=== PATIENT | female | born 1950 | race Caucasian/White ===

== ENCOUNTER 2018-01-14 13:59 | Observation (INO) | payer MEDICARE, OTHER ==
[2018-01-14] MEDS ORDERED: SODIUM CHLORIDE 0.9% 500 ML IV ONE (14:21)
--- NOTE | 2018-01-14 14:45 | ED ---
General Adult HPI - General Chief complaint: Altered Mental Status Stated complaint: Confusion Time Seen by Provider: 01/14/18 14:00 Source: patient, family, RN notes reviewed Mode of arrival: ambulatory Limitations: no limitations - History of Present Illness Initial comments: This is a 67-year-old female presents emergency Department with her because she has been amnestic about this morning's events. And amnestic about the date or year and time. Patient's states she was normal about 1:00 she came outside ask him a question and then later he doctor and the patient did not even remember coming to see him. Patient admits she doesn't seem to be another member happened earlier today. Patient denies any headache patient denies numbness weakness. Patient denies any visual disturbance. states she was not having any patient returns. states she ambulated normally she appeared to have normal strength of all 4 extremities. Patient herself denied any weakness in extremities. Patient denied any chest pain palpitations difficulty breathing or shortness of breath. Patient denied any abdominal pain. Patient denied any palpitations. Patient denied any recent fever chills or cough. Patient denies any dysuria hematuria urinary frequency. - Related Data Home Medications Medication Instructions Recorded Confirmed Lisinopril-Hctz 10-12.5 mg 1 tab PO DAILY 01/14/18 01/14/18 [Zestoretic 10-12.5] Allergies Allergy/AdvReac Type Severity Reaction Status Date / Time Sulfa (Sulfonamide Allergy Rash/Hives Verified 01/14/18 14:26 Antibiotics) Review of Systems ROS Statement: Those systems with pertinent positive or pertinent negative responses have been documented in the HPI. ROS Other: All systems not noted in ROS Statement are negative. Past Medical History Past Medical History: No Reported History History of Any Multi-Drug Resistant Organisms: None Reported Past Surgical History: Tubal Ligation Past Psychological History: No Psychological Hx Reported Smoking Status: Never smoker Past Alcohol Use History: None Reported Past Drug Use History: None Reported General Exam - General Exam Comments Initial Comments: GENERAL: Patient is well-developed and well-nourished. Patient is nontoxic and well- hydrated and is in mild distress. ENT: Neck is soft and supple. No significant lymphadenopathy is noted. Oropharynx is clear. Moist mucous membranes. Neck has full range of motion without eliciting any pain. EYES: The sclera were anicteric and conjunctiva were pink and moist. Extraocular movements were intact and pupils were equal round and reactive to light. Eyelids were unremarkable. PULMONARY: Unlabored respirations. Good breath sounds bilaterally. No audible rales rhonchi or wheezing was noted. CARDIOVASCULAR: There is a regular rate and rhythm without any murmurs gallops or rubs. ABDOMEN: Soft and nontender with normal bowel sounds. No palpable organomegaly was noted. There is no palpable pulsatile mass. SKIN: Skin is clear with no lesions or rashes and otherwise unremarkable. NEUROLOGIC: Patient is alert and oriented 2. Patient is unaware of the year or date or time. Cranial nerves II through XII are grossly intact. Motor and sensory are also intact. Normal speech, volume and content. Symmetrical smile. MUSCULOSKELETAL: Normal extremities with adequate strength and full range of motion. No lower extremity swelling or edema. No calf tenderness. LYMPHATICS: No significant lymphadenopathy is noted PSYCHIATRIC: Normal psychiatric evaluation. Normal interpersonal interactions appears functionally intact in deals appropriately with others. No signs of depression. No signs of anxiety. Limitations: no limitations Course Vital Signs 01/14/18 01/14/18 01/14/18 14:06 14:45 16:02 Temperature 98.4 F Pulse Rate 97 78 86 Respiratory 18 16 18 Rate Blood Pressure 139/80 149/65 128/60 O2 Sat by Pulse 99 99 100 Oximetry Medical Decision Making - Medical Decision Making EKG shows a normal sinus rhythm at 75 bpm AK interval is 162 QRS is 84 Q-T intervals 384 QTC is 428. Patient's EKG shows no ST segment elevation or depression or T wave abnormalities are noted - Lab Data Result diagrams: 01/14/18 14:20 01/14/18 14:20 Lab Results 01/14/18 01/14/18 01/14/18 Range/Units 14:20 14:20 14:20 WBC 8.3 (3.8-10.6) k/uL RBC 4.85 (3.80-5.40) m/uL Hgb 14.6 (11.4-16.0) gm/dL Hct 43.2 (34.0-46.0) % MCV 89.0 (80.0-100.0) fL MCH 30.1 (25.0-35.0) pg MCHC 33.9 (31.0-37.0) g/dL RDW 12.4 (11.5-15.5) % Plt Count 251 (150-450) k/uL Neutrophils % 77 % Lymphocytes % 18 % Monocytes % 3 % Eosinophils % 1 % Basophils % 0 % Neutrophils # 6.4 (1.3-7.7) k/uL Lymphocytes # 1.5 (1.0-4.8) k/uL Monocytes # 0.2 (0-1.0) k/uL Eosinophils # 0.1 (0-0.7) k/uL Basophils # 0.0 (0-0.2) k/uL PT (9.0-12.0) sec INR (<1.2) APTT (22.0-30.0) sec Sodium 143 (137-145) mmol/L Potassium 3.7 (3.5-5.1) mmol/L Chloride 99 (98-107) mmol/L Carbon Dioxide 30 (22-30) mmol/L Anion Gap 14 mmol/L BUN 19 H (7-17) mg/dL Creatinine 0.70 (0.52-1.04) mg/dL Est GFR (CKD-EPI)AfAm >90 (>60 ml/min/1.73 sqM) Est GFR (CKD-EPI)NonAf >90 (>60 ml/min/1.73 sqM) Glucose 129 H (74-99) mg/dL POC Glucose (mg/dL) (75-99) mg/dL POC Glu [facility] Coordinator ID Calcium 10.4 H (8.4-10.2) mg/dL Total Bilirubin 0.4 (0.2-1.3) mg/dL AST 30 (14-36) U/L ALT 32 (9-52) U/L Alkaline Phosphatase 115 (38-126) U/L Total Creatine Kinase 51 (30-135) U/L CK-MB (CK-2) <0.2 (0.0-2.4) ng/mL CK-MB (CK-2) Rel Index Troponin I <0.012 (0.000-0.034) ng/mL Total Protein 7.5 (6.3-8.2) g/dL Albumin 4.3 (3.5-5.0) g/dL Urine Color Urine Appearance (Clear) Urine pH (5.0-8.0) Ur Specific [place] (1.001-1.035) Urine Protein (Negative) Urine Glucose (UA) (Negative) Urine Ketones (Negative) Urine Blood (Negative) Urine Nitrite (Negative) Urine Bilirubin (Negative) Urine Urobilinogen (<2.0) mg/dL Ur Leukocyte Esterase (Negative) Urine RBC (0-5) /hpf Urine WBC (0-5) /hpf Ur Squamous Epith Cells (0-4) /hpf Hyaline Casts (0-2) /lpf Urine Mucus (None) /hpf Urine Opiates Screen (NotDetected) Ur Oxycodone Screen (NotDetected) Urine Methadone Screen (NotDetected) Ur Propoxyphene Screen (NotDetected) Ur Barbiturates Screen (NotDetected) U Tricyclic Antidepress (NotDetected) Ur Phencyclidine Scrn (NotDetected) Ur Amphetamines Screen (NotDetected) U Methamphetamines Scrn (NotDetected) U Benzodiazepines Scrn (NotDetected) Urine Cocaine Screen (NotDetected) U Marijuana (THC) Screen (NotDetected) 01/14/18 01/14/18 01/14/18 Range/Units 14:20 14:46 14:57 WBC (3.8-10.6) k/uL RBC (3.80-5.40) m/uL Hgb (11.4-16.0) gm/dL Hct (34.0-46.0) % MCV (80.0-100.0) fL MCH (25.0-35.0) pg MCHC (31.0-37.0) g/dL RDW (11.5-15.5) % Plt Count (150-450) k/uL Neutrophils % % Lymphocytes % % Monocytes % % Eosinophils % % Basophils % % Neutrophils # (1.3-7.7) k/uL Lymphocytes # (1.0-4.8) k/uL Monocytes # (0-1.0) k/uL Eosinophils # (0-0.7) k/uL Basophils # (0-0.2) k/uL PT 10.5 (9.0-12.0) sec INR 1.1 (<1.2) APTT 22.5 (22.0-30.0) sec Sodium (137-145) mmol/L Potassium (3.5-5.1) mmol/L Chloride (98-107) mmol/L Carbon Dioxide (22-30) mmol/L Anion Gap mmol/L BUN (7-17) mg/dL Creatinine (0.52-1.04) mg/dL Est GFR (CKD-EPI)AfAm (>60 ml/min/1.73 sqM) Est GFR (CKD-EPI)NonAf (>60 ml/min/1.73 sqM) Glucose (74-99) mg/dL POC Glucose (mg/dL) 124 H (75-99) mg/dL POC Glu [facility] Coordinator ID Beth Cedeno Calcium (8.4-10.2) mg/dL Total Bilirubin (0.2-1.3) mg/dL AST (14-36) U/L ALT (9-52) U/L Alkaline Phosphatase (38-126) U/L Total Creatine Kinase (30-135) U/L CK-MB (CK-2) (0.0-2.4) ng/mL CK-MB (CK-2) Rel Index Troponin I (0.000-0.034) ng/mL Total Protein (6.3-8.2) g/dL Albumin (3.5-5.0) g/dL Urine Color Yellow Urine Appearance Clear (Clear) Urine pH 5.0 (5.0-8.0) Ur Specific [place] 1.023 (1.001-1.035) Urine Protein Negative (Negative) Urine Glucose (UA) Negative (Negative) Urine Ketones Negative (Negative) Urine Blood Negative (Negative) Urine Nitrite Negative (Negative) Urine Bilirubin Negative (Negative) Urine Urobilinogen <2.0 (<2.0) mg/dL Ur Leukocyte Esterase Moderate H (Negative) Urine RBC 2 (0-5) /hpf Urine WBC 3 (0-5) /hpf Ur Squamous Epith Cells 2 (0-4) /hpf Hyaline Casts 1 (0-2) /lpf Urine Mucus Occasional H (None) /hpf Urine Opiates Screen Not Detected (NotDetected) Ur Oxycodone Screen Not Detected (NotDetected) Urine Methadone Screen Not Detected (NotDetected) Ur Propoxyphene Screen Not Detected (NotDetected) Ur Barbiturates Screen Not Detected (NotDetected) U Tricyclic Antidepress Not Detected (NotDetected) Ur Phencyclidine Scrn Not Detected (NotDetected) Ur Amphetamines Screen Not Detected (NotDetected) U Methamphetamines Scrn Not Detected (NotDetected) U Benzodiazepines Scrn Not Detected (NotDetected) Urine Cocaine Screen Not Detected (NotDetected) U Marijuana (THC) Screen Not Detected (NotDetected) Disposition Clinical Impression: CVA (cerebral vascular accident), Amnesia Disposition: ADMITTED IP TO THIS HOSP Referrals: None,Stated [Primary Care Provider] - 1-2 days Time of Disposition: 16:20
[2018-01-14 14:50] LABS: Basophils % (A) 0 %; Eosinophils # (A) 0.1 k/uL (0-0.7); Eosinophils % (A) 1 %; HCT 43.2 % (34.0-46.0); HGB 14.6 gm/dL (11.4-16.0); Lymphocytes # (A) 1.5 k/uL (1.0-4.8); Lymphocytes % (A) 18 %; MCH 30.1 pg (25.0-35.0); MCHC 33.9 g/dL (31.0-37.0); Mean Platelet Volume 7.2; Monocytes # (A) 0.2 k/uL (0-1.0); Monocytes % (A) 3 %; Neutrophils # (A) 6.4 k/uL (1.3-7.7); Neutrophils % (A) 77 %; Platelet Count 251 k/uL (150-450); RBC 4.85 m/uL (3.80-5.40); RDW 12.4 % (11.5-15.5); WBC 8.3 k/uL (3.8-10.6)
--- NOTE | 2018-01-14 14:53 | XR ---
EXAMINATION TYPE: XR chest 2V DATE OF EXAM: 01/14/2018 COMPARISON: NONE TECHNIQUE: PA and lateral views submitted. HISTORY: Altered mental status FINDINGS: The lungs are clear and there is no pneumothorax, pleural effusion, or focal pneumonia. Arthropathy of the shoulders. Degenerative change of the spine noted. Hyperinflation suggests COPD. Surgical cli ps in the abdomen noted. IMPRESSION: 1. No acute process.
[2018-01-14 14:54] LABS: ALT 32 U/L (9-52); AST 30 U/L (14-36); Albumin 4.3 g/dL (3.5-5.0); Alkaline Phosphatase 115 U/L (38-126); Anion Gap 14 mmol/L; Blood Urea Nitrogen 19 mg/dL (7-17); Calcium 10.4 mg/dL (8.4-10.2); Carbon Dioxide 30 mmol/L (22-30); Chloride 99 mmol/L (98-107); Glucose 129 mg/dL (74-99); INR 1.1 (<1.2); Partial Thromboplastin Time 22.5 sec (22.0-30.0); Potassium 3.7 mmol/L (3.5-5.1); Prothrombin Time 10.5 sec (9.0-12.0); Sodium 143 mmol/L (137-145); Total Bilirubin 0.4 mg/dL (0.2-1.3); Total Protein 7.5 g/dL (6.3-8.2)
[2018-01-14 15:07] LABS: Glucose,Whole Blood 124 mg/dL (75-99)
[2018-01-14 15:07] LABS: Appearance,Urine Clear (Clear); Bilirubin,Urine Negative (Negative); Blood,Urine Negative (Negative); Color,Urine Yellow; Glucose,Urine (UA) Negative (Negative); Hyaline Casts,Urine 1 /lpf (0-2); Ketones,Urine Negative (Negative); Leukocyte Esterase,Urine Moderate (Negative); Mucus,Urine Occasional /hpf; Nitrite,Urine Negative (Negative); Protein,Urine Negative (Negative); RBC,Urine 2 /hpf (0-5); Specific Gravity,Urine 1.023 (1.001-1.035); Squamous Epithelial Cell,Urine 2 /hpf (0-4); Urobilinogen,Urine <2.0 mg/dL (<2.0); WBC,Urine 3 /hpf (0-5)
[2018-01-14 15:14] LABS: Creatine Kinase 51 U/L (30-135)
[2018-01-14 15:15] LABS: Amphetamine Screen,Urine Not Detected (NotDetected); Barbiturate Screen,Urine Not Detected (NotDetected); Benzodiazepines Screen,Urine Not Detected (NotDetected); Cocaine Screen,Urine Not Detected (NotDetected); Methadone Screen, Urine Not Detected (NotDetected); Opiate Screen,Urine Not Detected (NotDetected); Oxycodone Screen, Urine Not Detected (NotDetected); Phencyclidine Screen,Urine Not Detected (NotDetected); Tricyclic Antidepressant,Urine Not Detected (NotDetected); Urn Cannabinoid Scrn Not Detected (NotDetected)
[2018-01-14 15:25] LABS: Creatine Kinase MB <0.2 ng/mL (0.0-2.4); Troponin I <0.012 ng/mL (0.000-0.034)
--- NOTE | 2018-01-14 15:48 | CT ---
EXAMINATION TYPE: CT brain wo con DATE OF EXAM: 01/14/2018 COMPARISON: NONE HISTORY: Confusion CT DLP: 792.6 mGycm Automated exposure control for dose reduction was used. FINDINGS: 0.8 x 0.5 cm mass along the anterior cerebral convexity on the right. Mild to moderate generalized degenerative change. Periventricular low attenuation is compatible with remote microvascular ischemia. Intracranial atherosclerotic changes are noted. No midline shift. Calvarium is intact and there are changes of hyperostosis frontalis interna. IMPRESSION: DEGENERATIVE AND NONSPECIFIC WHITE MATTER CHANGES MOST TYPICAL REMOTE MICROVASCULAR ISCHEMIA. IF THER E IS CONCERN FOR ACUTE ISCHEMIA CORRELATE WITH MRI. THERE IS A 0.8 X 0.5 CM EXTRA-AXIAL MASS ALONG THE ANTERIOR FRONTAL CEREBRAL CONVEXITY MOST COMPATIBL E WITH A MENINGIOMA.
[2018-01-14] MEDS ORDERED: ASPIRIN 325 MG TAB PO STA (16:22)
[2018-01-14] MEDS ORDERED: ACETAMINOPHEN TAB 500 MG TAB PO PRN (17:47)
[2018-01-14] MEDS: IBUPROFEN 600 MG TAB PO PRN (20:39)
--- NOTE | 2018-01-14 21:04 | US ---
EXAMINATION TYPE: US carotid duplex BILAT DATE OF EXAM: 01/14/2018 COMPARISON: NONE CLINICAL HISTORY: TIA. TIA EXAM MEASUREMENTS: RIGHT: Peak Systolic Velocity (PSV) cm/sec ----- Right CCA: 71.1 ----- Right ICA: 94.4 ----- Right ECA: 90.0 ICA/CCA ratio: 1.3 RIGHT: End Diastole cm/sec ----- Right CCA: 11.5 ----- Right ICA: 28.9 ----- Right ECA: 8.6 LEFT: Peak Systolic Velocity (PSV) cm/sec ----- Left CCA: 85.8 ----- Left ICA: 83.2 ----- Left ECA: 112.2 ICA/CCA ratio: 1.0 LEFT: End Diastole cm/sec ----- Left CCA: 18.4 ----- Left ICA: 17.1 ----- Left ECA: 10.1 VERTEBRALS (direction of flow): Right Vertebral: Antegrade Left Vertebral: Antegrade Rhythm: Normal IMPRESSION: NO SIGNIFICANT STENOSIS SEEN
--- NOTE | 2018-01-14 21:52 | CONS ---
CONSULTATION DATE OF CONSULTATION: 01/14/2018 CHIEF COMPLAINT: Transient amnestic spell. HISTORY OF PRESENT ILLNESS: Mrs. Estrada is a pleasant 67-year-old female who is being evaluated by the neurology service per the request of Dr. Fuller for a transient amnestic episode. The patient was brought into [facility] Emergency Room after her noticed that she was not remembering the events of this morning. The patient states that she remembers waking up this morning but then does not recall much until she remembers things in the emergency room. She states that there are approximately 4 hours of this morning that she does not recall. She denies any previous episodes similar to this. She did not have any falls or head injury. She does complain of a headache. A CT scan of the brain was done which showed small-vessel ischemic changes. There was also evidence of an 8 x 5 mm extra-axial frontal region mass consistent with a meningioma. Her CBC, comprehensive metabolic profile, cardiac enzymes, urine drug screen and INR were all reviewed and were normal. Her urinalysis showed 3 WBCs with moderate leukocyte esterase. At the time of my evaluation, the patient is sitting up in her bed and appears to be in no acute distress. She denies any recurrence of any neurological symptoms and denies any lateralizing numbness or weakness at this time. She still complains of a headache which she rates at 7/10 in intensity, and it is mostly in the frontal region bilaterally. She has been given Tylenol, but this did not resolve the headache. She states that her headaches usually respond to ibuprofen. PAST MEDICAL HISTORY: Hypertension. PAST SURGICAL HISTORY: Tubal ligation. SOCIAL HISTORY: She denies any tobacco, alcohol or drug use. FAMILY HISTORY: Noncontributory. HOME MEDICATIONS: Reviewed in the chart. ALLERGIES: SULFA DRUGS. REVIEW OF SYSTEMS: CONSTITUTIONAL: Negative. EYES: Negative. ENT: Negative. CARDIOVASCULAR: Negative. RESPIRATORY: Negative. NEUROLOGICAL: As mentioned above. GASTROINTESTINAL: Negative. GENITOURINARY: Negative. DERMATOLOGICAL: Negative. PSYCHIATRIC: Negative. MUSCULOSKELETAL: Negative. ENDOCRINE: Negative. PHYSICAL EXAMINATION: Vital signs show a temperature of 97.3, pulse 76, respirations 16, blood pressure 140/86. GENERAL APPEARANCE: The patient is a well-developed female who appears to be in no acute distress. HEENT: Normocephalic, atraumatic. No facial asymmetry is seen. Extraocular muscles are intact. NECK: Supple with no masses felt. CARDIOVASCULAR: Regular rate and rhythm. ABDOMEN: Nontender, nondistended. Extremities showed no edema or clubbing. NEUROLOGICAL EXAMINATION: The patient is alert, aware and oriented x3. Speech and language are normal. Strength is full in all 4 extremities. Sensory exam was normal to light touch in all 4 extremities. No facial asymmetry is seen on cranial nerve testing. IMPRESSION: 1. Transient ischemic attack. 2. Transient amnestic episode. 3. Headache. 4. Meningioma. RECOMMENDATION: The patient does appear to have suffered a transient ischemic attack with a transient amnestic episode. Her symptoms have completely resolved at this time. I will keep her on aspirin 325 mg daily. She was not on any anti-platelet therapy at home. I will order a fasting lipid panel, EEG, carotid Doppler and serum homocystine level. I reviewed with her the results of her CT scan of the brain as mentioned above. As for her headache, I will try her on Motrin 600 mg p.r.n. Continue the rest of your current workup and management. I will continue to follow with you. Further recommendations to follow. Thank you for allowing me to participate in the care of your patient. If you have any questions, please feel free to contact me. MMODL / IJN: [id number] /
[2018-01-15 06:31] LABS: Cholesterol 170 mg/dL (<200); HDL Cholesterol 63 mg/dL (40-60); LDL Cholesterol,Calculated 95 mg/dL (0-99); Triglycerides 61 mg/dL (<150)
[2018-01-15] MEDS: ASPIRIN 325 MG TAB PO SCH (07:58)
[2018-01-15] MEDS: LISINOPRIL-HCTZ 10-12.5 MG 1 EACH TAB PO SCH (07:58)
--- NOTE | 2018-01-15 11:56 | P.HPIM ---
History of Present Illness H&P Date: 01/15/18 Chief Complaint: Short period of memory loss This is a 67-year-old female with past medical history significant for essential hypertension who presented to the emergency room with a transient episode of amnesia. Patient was brought in by her with concern that she did not remember significant events it happened yesterday morning. Her informed me that patient did not recall meeting him at the bar or even talking to him on the phone. Patient herself said that she does not even remember when she was brought into the hospital. She feels back to her normal self right now. There was no focal neurological deficits. Patient denies any headache or vision change. No numbness or weakness anywhere in her body. Patient was evaluated in the emergency room and a computed tomography scan of the brain showed evidence of a questionable hemangioma. Patient said that she is well aware of this lesion. Patient reported that she had an MRI of the brain done couple of month ago at [facility]. She was previously evaluated by neurosurgery at [facility] as well. She is currently awake and alert. She does not have any complaints. She was seen and evaluated by neurology. Review of Systems Review of system: 14 points review of systems were obtained and were negative except to what were mentioned in the HPI. Past Medical History Past Medical History: Hypertension, Rheumatoid Arthritis (RA) Additional Past Medical History / Comment(s): cervical ddd-"has had epidural inj and pt stated ever since her rt hand to wrist feels icy cold",sinus problems. past migaines, History of Any Multi-Drug Resistant Organisms: None Reported Past Surgical History: Cholecystectomy, Hysterectomy, Tubal Ligation Additional Past Surgical History / Comment(s): colonoscopy, cervical epidural inj Past Anesthesia/Blood Transfusion Reactions: Postoperative Nausea & Vomiting ( PONV) Smoking Status: Never smoker - Past Family History Mother Family Medical History: Liver Disease Additional Family Medical History / Comment(s): non alcohoilic liver disease Father Family Medical History: Hypertension, Myocardial Infarction (DE) Additional Family Medical History / Comment(s): mi at age 48. smoker Medications and Allergies Home Medications Medication Instructions Recorded Confirmed Type Lisinopril-Hctz 10-12.5 mg 1 tab PO DAILY 01/14/18 01/14/18 History [Zestoretic 10-12.5] Allergies Allergy/AdvReac Type Severity Reaction Status Date / Time Sulfa (Sulfonamide Allergy Rash/Hives Verified 01/14/18 14:26 Antibiotics) Physical Exam Vitals: Vital Signs Temp Pulse Pulse Resp BP BP Pulse Ox 01/15/18 11:29 73 01/15/18 10:58 97.0 F L 73 16 123/58 97 01/15/18 08:00 73 01/15/18 07:47 97.5 F L 73 16 108/63 97 01/15/18 04:10 85 17 01/15/18 04:00 98.2 F 80 17 116/57 97 01/15/18 00:15 98.1 F 93 17 104/57 97 01/14/18 20:10 98.1 F 88 17 118/57 98 01/14/18 17:15 76 16 01/14/18 17:13 97.3 F L 76 16 140/86 98 01/14/18 16:43 97.6 F 79 16 124/97 99 01/14/18 16:02 86 18 128/60 100 01/14/18 14:45 78 16 149/65 99 01/14/18 14:06 98.4 F 97 18 139/80 99 Intake and Output 01/14/18 01/15/18 01/15/18 22:59 06:59 14:59 Intake Total 240 490 Balance 240 490 Intake: IV 10 0.9 10 Oral 240 480 Other: Voiding Method Toilet Toilet # Voids 1 2 1 Weight 80.6 kg General: The patient is awake and alert, in no distress Eye: there is normal conjunctiva bilaterally. Neck: The neck is supple, there is no JVD. Cardiovascular: Normal S1-S2, no S3-S4, no murmurs. Respiratory: Lungs clear to auscultation bilaterally Gastrointestinal: Abdomen is soft, nontender Musculoskeletal: There is no pedal edema. Neurological:. Speech is normal. Skin: Skin is warm and dry Results CBC & Chem 7: 01/14/18 14:20 01/14/18 14:20 Labs: Abnormal Lab Results - Last 24 Hours (Table) 01/14/18 01/14/18 01/14/18 Range/Units 14:20 14:46 14:57 BUN 19 H (7-17) mg/dL Glucose 129 H (74-99) mg/dL POC Glucose (mg/dL) 124 H (75-99) mg/dL Calcium 10.4 H (8.4-10.2) mg/dL HDL Cholesterol (40-60) mg/dL Ur Leukocyte Esterase Moderate H (Negative) Urine Mucus Occasional H (None) /hpf 01/15/18 Range/Units 05:54 BUN (7-17) mg/dL Glucose (74-99) mg/dL POC Glucose (mg/dL) (75-99) mg/dL Calcium (8.4-10.2) mg/dL HDL Cholesterol 63 H (40-60) mg/dL Ur Leukocyte Esterase (Negative) Urine Mucus (None) /hpf Thrombosis Risk Factor Assmnt - Choose All That Apply Each Risk Factor Represents 2 Points: Age 61-74 years Thrombosis Risk Factor Assessment Total Risk Factor Score: 2 Thrombosis Risk Factor Assessment Level: Low Risk Assessment and Plan Assessment: 1. Episode of transient amnesia 2. Suspected transient ischemic attack 3. Brain hemangioma 4. Diet-controlled hyperlipidemia Isn't was seen and evaluated by neurology. She was started on aspirin daily. Her symptoms may be attributed to transient ischemic attack. Carotid Doppler showed no hematoma dynamically significant stenosis. I would obtain echocardiogram of the heart for further evaluation. We will try to obtain a copy of the MRI done attributed to stick to a month ago. Continue telemetry monitoring. Awaiting neurology clearance for discharge.
--- NOTE | 2018-01-15 13:38 | EEG ---
ELECTROENCEPHALOGRAM REPORT DATE OF SERVICE: 01/15/2018 REASON FOR TESTING: Transient ischemic attack, transient amnestic spell. DESCRIPTION OF THE PROCEDURE: This EEG was performed using a 21 channel digital electroencephalograph, following international 10-20 system. DESCRIPTION OF THE RECORDING: From the beginning of the tracing, and with patient's eyes closed, the background rhythm was mostly consisting of 8 to 9 Hz alpha frequency in the posterior occipital leads. No obvious asymmetry is seen. Photic stimulation was performed with a minimal driving response seen. No pathological waves were elicited. Hyperventilation was not performed. Frequent movement and muscle artifacts are seen. No obvious epileptiform discharges were seen. The patient remains awake throughout the tracing. Her EKG lead showed a regular rate and rhythm. INTERPRETATION: This awake EEG can be considered within normal limits. There was no asymmetry seen. No epileptiform discharges were noticed. The absence of epileptiform discharges does not rule out the diagnosis of epilepsy; therefore clinical correlation is recommended. MMMERNA / SHAWN: [id number] /
[2018-01-15] MEDS: IBUPROFEN 600 MG TAB PO PRN (19:49)
[2018-01-15] MEDS: HEPARIN SODIUM,PORCINE 5,000 UNIT/ML 1 ML VIAL SQ SCH (20:05)
[2018-01-16 06:03] LABS: Basophils % (A) 1 %; Eosinophils # (A) 0.2 k/uL (0-0.7); Eosinophils % (A) 3 %; HCT 37.7 % (34.0-46.0); HGB 12.9 gm/dL (11.4-16.0); Lymphocytes # (A) 2.4 k/uL (1.0-4.8); Lymphocytes % (A) 41 %; MCH 30.5 pg (25.0-35.0); MCHC 34.3 g/dL (31.0-37.0); MCV 88.9 fL (80.0-100.0); Mean Platelet Volume 7.3; Monocytes # (A) 0.3 k/uL (0-1.0); Monocytes % (A) 6 %; Neutrophils # (A) 2.8 k/uL (1.3-7.7); Neutrophils % (A) 47 %; Platelet Count 202 k/uL (150-450); RBC 4.24 m/uL (3.80-5.40); RDW 12.6 % (11.5-15.5); WBC 5.9 k/uL (3.8-10.6)
[2018-01-16 06:13] LABS: Albumin 3.6 g/dL (3.5-5.0); Potassium 3.8 mmol/L (3.5-5.1); Total Protein 6.1 g/dL (6.3-8.2)
[2018-01-16 06:14] LABS: Calcium 9.7 mg/dL (8.4-10.2); Total Bilirubin 0.6 mg/dL (0.2-1.3)
[2018-01-16 08:27] VITALS: RESP 16; TEMP 97.1
[2018-01-16] MEDS: HEPARIN SODIUM,PORCINE 5,000 UNIT/ML 1 ML VIAL SQ SCH (08:28)
[2018-01-16] MEDS: ASPIRIN 325 MG TAB PO SCH (08:29)
[2018-01-16] MEDS: LISINOPRIL-HCTZ 10-12.5 MG 1 EACH TAB PO SCH (08:29)
--- NOTE | 2018-01-16 09:35 | ECHOF ---
Referral Reason:TIA? MEASUREMENTS -------- HEIGHT: 160.0 cm WEIGHT: 80.3 kg BP: 123/58 RVIDd: 2.2 cm (< 3.3) IVSd: 1.0 cm (0.6 - 1.1) LVIDd: 3.3 cm (3.9 - 5.3) LVPWd: 1.2 cm (0.6 - 1.1) IVSs: 1.1 cm LVIDs: 2.9 cm LVPWs: 1.1 cm LAESV Index (A-L): 24.27 ml/m Ao Diam: 2.8 cm (2.0 - 3.7) AV Cusp: 1.6 cm (1.5 - 2.6) LA Diam: 2.9 cm (2.7 - 3.8) MV EXCURSION: 14.577 mm (> 18.000) MV EF SLOPE: 62 mm/s (70 - 150) EPSS: 0.3 cm MV E Glenn: 0.86 m/s MV DecT: 174 ms MV A Glenn: 1.00 m/s MV E/A Ratio: 0.86 RAP: 5.00 mmHg RVSP: 34.03 mmHg FINDINGS -------- Sinus rhythm. This was a technically adequate study. LV size, wall thickness and systolic function are normal, with an EF greater than 55%. The right ventricle is normal in size. The left atrial size is normal. Normal LA size by volume 22+/-6 ml/m2. The right atrial size is normal. The aortic valve is trileaflet, and appears structurally normal. No aortic stenosis or regurgitation. Mild mitral regurgitation is present. Mild tricuspid regurgitation present. There is no evidence of pulmonary hypertension. The right v entricular systolic pressure, as measured by Doppler, is 34.03mmHg. There is no pulmonic regurgitation present. The aortic root size is normal. There is no pericardial effusion. CONCLUSIONS -------- 1. Sinus rhythm. 2. LV size, wall thickness and systolic function are normal, with an EF greater than 55%. 3. The left atrial size is normal. 4. Normal LA size by volume 22+/-6 ml/m2. 5. The right atrial size is normal. 6. The aortic valve is trileaflet, and appears structurally normal. No aortic stenosis or regurgitati on. 7. Mild mitral regurgitation is present. 8. Mild tricuspid regurgitation present. 9. There is no evidence of pulmonary hypertension. 10. The right ventricular systolic pressure, as measured by Doppler, is 34.03mmHg. 11. There is no pulmonic regurgitation present. 12. The aortic root size is normal. 13. There is no pericardial effusion. EXTRACORPOREAL CIRCULATION SPECIALIST: Galina Evans RDCS
[2018-01-16 11:14] VITALS: BP 105/57; PULSE 75
--- NOTE | 2018-01-16 14:14 | P.DS ---
Providers Date of admission: 01/14/18 16:23 Expected date of discharge: 01/16/18 Attending physician: Pan Fuller Consults: 01/14/18 16:23 Consult Physician Routine Consulting Provider: Raj Aponte Consult Reason/Comments: CVA, amnesia Do you want consulting provider notified?: Yes Primary care physician: Stated None Hospital Course: This is a 67-year-old female with past medical history noted below presented to the hospital with an episode of transient amnesia that resolved upon presentation to the emergency room. Patient underwent a computed tomography scan of the brain in the emergency room showing no acute stroke or CVA. Patient was noted to have some changes on CT suspected for remote microvascular ischemia. Patient also was noted to have a 0.8 x 0.5 Ex-Lax he had mass along the anterior frontal cerebral convexity compatible with a hemangioma. Patient said that this is well known to her and she was previously seen at [facility] neurosurgery in the past. She denies any headache otherwise. She did not have any other neurological symptoms. Patient was seen and evaluated by neurology. She was started on daily aspirin. Echocardiogram showed preserved ejection fraction with no intracardiac source for stroke. She also underwent an EEG that was normal for her age. She will be discharged home in a stable condition. She will follow-up with her primary care physician and neurologist at [facility]. 1. Episode of transient amnesia 2. Suspected transient ischemic attack 3. Brain hemangioma 4. Diet-controlled hyperlipidemia Patient Condition at Discharge: Fair Plan - Discharge Summary Discharge Rx Participant: No New Discharge Prescriptions: New Aspirin EC [Ecotrin Low Dose] 81 mg PO DAILY #30 tablet. Continue Lisinopril-Hctz 10-12.5 mg [Zestoretic 10-12.5] 1 tab PO DAILY Discharge Medication List Lisinopril-Hctz 10-12.5 mg [Zestoretic 10-12.5] 1 tab PO DAILY 01/14/18 [History ] Aspirin EC [Ecotrin Low Dose] 81 mg PO DAILY #30 tablet. 01/16/18 [Rx] Follow up Appointment(s)/Referral(s): Raj Aponte MD [STAFF PHYSICIAN] - 2 Weeks (Spoke to cross country coach. Office will call with appointment time.) Consuelo Roldan MD [REFERRING] - 01/20/18 10:30 am (Friday) Patient Instructions/Handouts: Transient Ischemic Attack (DC) Discharge Disposition: HOME SELF-CARE
== END 2018-01-16 15:43 | disposition home or self-care (01) ==
LOC: EC 13:59 → INTOOBSV 16:23 → 6SEL 16:23
PROVIDERS: ADMIT Internal Medicine; ATTEND Internal Medicine
DX: G45.4 Transient global amnesia (principal); D18.02 Hemangioma of intracranial structures; D32.0 Benign neoplasm of cerebral meninges; E78.5 Hyperlipidemia, unspecified; I10 Essential (primary) hypertension; M06.9 Rheumatoid arthritis, unspecified; M50.30 Other cervical disc degeneration, unspecified cervical region; Z88.2 Allergy status to sulfonamides; Z79.899 Other long term (current) drug therapy; Z90.49 Acquired absence of other specified parts of digestive tract; Z82.49 Family history of ischemic heart disease and other diseases of the circulatory system; Z83.79 Family history of other diseases of the digestive system
CPT/HCPCS: 99285 ×2; 96360 ×2; 36415; 95816; 93005; 93306; 97161; 97165; 92523; 80061; 80053 ×2; 82550; 82553; 84484; 85025 ×2; 85610; 85730; 81001; 83090; 80306; 71046; 93880; 70450; G0378 ×4

== ENCOUNTER → 2018-02-10 | Outpatient (CLI) | payer MEDICARE, OTHER ==
--- NOTE | 2018-02-10 10:33 | MR ---
EXAMINATION TYPE: MR brain wo/w con DATE OF EXAM: 02/10/2018 COMPARISON: CT brain 01/14/2018 HISTORY: Benign neoplasm of cerebral meninges, Short term memory loss TECHNIQUE: Multiplanar, multisequence images of the brain and brainstem is performed without and with IV contras t, utilizing 7.5 mL intravenous Gadavist . FINDINGS: Diffusion weighted images demonstrate no evidence of a recent infarct or other diffusion ab normality. There is no extra-axial fluid collection. Scattered hyperintensities are present within the inversion recovery and T2 weighted data sets in the subcortical, deep, periventricular white duy er. Approximately 30 or more lesions are present. Question juxtacortical lesion in the medial right t emporal lobe, axial image 13. The abnormality identified on CT superficial to the right frontal lobe, is dural based, shows increased intensity on FLAIR sequence, isointense on T1 and T2-weighted sequen blas. There is intense enhancement following contrast administration, the lesion measures approximatel y 1 cm in AP dimension by 7 mm in transverse dimension by 6 mm, there is possibly some minimal local mass effect The ventricular system and cisternal spaces are normal in size and appearance. The brain volume is age appropriate. Midline structures demonstrate normal morphology. The craniocervical junction appears within normal limits. The dural venous sinuses appear patent. The visualized sinuses are clear and the globes are intact. Minimal inflammatory change present in the mastoid air cells on the left. There are normal v ascular flow voids. IMPRESSION: Findings compatible with meningioma as noted on CT of 01/14/2018. Nonspecific white matter demyelination could be related to chronic small vessel ischemic change.
== END | disposition home or self-care (01) ==
LOC: RADMRIMAIN 08:28
PROVIDERS: ATTEND Family Medicine
DX: G37.8 Other specified demyelinating diseases of central nervous system (principal); D32.0 Benign neoplasm of cerebral meninges
CPT/HCPCS: 70553; A9581

== ENCOUNTER 2019-01-27 18:27 | Emergency (ER) | payer MEDICARE, OTHER ==
[2019-01-27] MEDS ORDERED: SODIUM CHLORIDE 0.9% 500 ML 500 ML IV ONE (18:50)
--- NOTE | 2019-01-27 19:12 | ED ---
General Adult HPI - General Chief complaint: Altered Mental Status Stated complaint: mental confustion Time Seen by Provider: 01/27/19 18:43 Source: patient, family, RN notes reviewed, old records reviewed Mode of arrival: ambulatory Limitations: no limitations - History of Present Illness Initial comments: 68-year-old female presents with confusion and repetitive questioning which began this afternoon approximately 4 hours prior to arrival. Patient had similar episode approximately one year ago with confusion and repetitive questioning. She was evaluated at that time and admitted to the hospital. She states that there was no formal diagnosis made in that the symptoms completely resolved. She has history of hypertension and denies any other chronic medical problems. She has no headache, no vision changes, no focal numbness or weakness. No abdominal pain. No chest pain or dyspnea. No cough no fever. No dysuria or hematuria. - Related Data Home Medications Medication Instructions Recorded Confirmed Lisinopril-Hctz 10-12.5 mg 1 tab PO DAILY 01/14/18 01/27/19 [Zestoretic 10-12.5] Aspirin 650 mg PO ONCE PRN 01/27/19 01/27/19 Allergies Allergy/AdvReac Type Severity Reaction Status Date / Time Sulfa (Sulfonamide Allergy Rash/Hives Verified 01/27/19 19:01 Antibiotics) Review of Systems ROS Statement: Those systems with pertinent positive or pertinent negative responses have been documented in the HPI. ROS Other: All systems not noted in ROS Statement are negative. Past Medical History Past Medical History: Hypertension, Rheumatoid Arthritis (RA) Additional Past Medical History / Comment(s): cervical ddd-"has had epidural inj and pt stated ever since her rt hand to wrist feels icy cold",sinus problems. past migaines, History of Any Multi-Drug Resistant Organisms: None Reported Past Surgical History: Cholecystectomy, Hysterectomy, Tubal Ligation Additional Past Surgical History / Comment(s): colonoscopy, cervical epidural inj Past Anesthesia/Blood Transfusion Reactions: Postoperative Nausea & Vomiting ( PONV) Past Psychological History: No Psychological Hx Reported Smoking Status: Never smoker Past Alcohol Use History: None Reported Past Drug Use History: None Reported - Past Family History Mother Family Medical History: Liver Disease Additional Family Medical History / Comment(s): non alcohoilic liver disease Father Family Medical History: Hypertension, Myocardial Infarction ([place]) Additional Family Medical History / Comment(s): mi at age 48. smoker General Exam Limitations: no limitations General appearance: alert, in no apparent distress Head exam: Present: atraumatic, normocephalic Eye exam: Present: normal appearance, PERRL ENT exam: Present: normal exam Neck exam: Present: normal inspection. Absent: tenderness, meningismus Respiratory exam: Present: normal lung sounds bilaterally. Absent: respiratory distress, wheezes Cardiovascular Exam: Present: regular rate, normal rhythm GI/Abdominal exam: Present: soft. Absent: distended, tenderness, guarding Extremities exam: Present: normal inspection, normal capillary refill. Absent: pedal edema Neurological exam: Present: alert, oriented X3, CN II-XII intact. Absent: motor sensory deficit Expanded Neurological exam: Present: protecting the airway. Absent: receptive aphasia, expressive aphasia Patient oriented to: Present: person, place, time Speech: Present: fluid speech. Absent: receptive aphasia, expressive aphasia, total aphasia Cranial nerves: EOM's Intact: Normal, Gag Reflex: Normal, Tongue Deviation: Normal, Nystagmus: Normal, Facial Palsy with Forehead Movement: Normal Cerebellar function: Finger to Nose: Normal Upper motor neuron: Hiro Neglect: Normal, Pronator Drift: Normal Motor strength exam: RUE: 5, LUE: 5, RLE: 5, LLE: 5 Eye Response: (4) open spontaneously Motor Response: (6) obeys commands Verbal Response: (5) oriented Psychiatric exam: Present: normal affect, normal mood Skin exam: Present: warm, dry, intact. Absent: cyanosis, diaphoretic Course Vital Signs 01/27/19 01/27/19 18:30 19:04 Temperature 97.6 F Pulse Rate 106 H 102 H Respiratory 20 16 Rate Blood Pressure 144/74 140/70 O2 Sat by Pulse 99 99 Oximetry EKG Findings - EKG Comments: EKG Findings:: EKG: Normal sinus rhythm, rate of 85, NE interval 172, QRS duration 76, QTC 437, no ST segment changes. Medical Decision Making - Medical Decision Making 68 -year-old female presents as some confusion and questioning. Patient is well-appearing, shows a nonfocal neurologic exam. NIH is 0. She is alert and oriented 4. She is accompanied by her . Workup in the emergency department reveals head CT which is negative for intracranial hemorrhage or mass effect. Chest x-ray negative for focal pneumonia. Normal CBC, normal CMP. Urinalysis shows 3 white cells, no significant infection. Urinalysis is posi tive for benzodiazepines and patient does take Xanax to help her sleep at night. She did not take this in the daytime. She is informed of our results and is very eager for discharge. Given that the patient had similar symptoms one year ago which resolved without treatment, I am comfortable with close outpatient follow-up. She will return with any worsening or changing symptoms. She is alert and oriented and able to make decisions, her is agreeable. - Lab Data Result diagrams: 01/27/19 18:45 01/27/19 18:45 Lab Results 01/27/19 01/27/19 01/27/19 Range/Units 18:45 18:45 18:45 WBC 8.8 (3.8-10.6) k/uL RBC 4.39 (3.80-5.40) m/uL Hgb 14.6 (11.4-16.0) gm/dL Hct 38.8 (34.0-46.0) % MCV 88.4 (80.0-100.0) fL MCH 33.4 (25.0-35.0) pg MCHC 37.8 H (31.0-37.0) g/dL RDW 13.7 (11.5-15.5) % Plt Count 265 (150-450) k/uL Neutrophils % 76 % Lymphocytes % 17 % Monocytes % 4 % Eosinophils % 1 % Basophils % 0 % Neutrophils # 6.7 (1.3-7.7) k/uL Lymphocytes # 1.5 (1.0-4.8) k/uL Monocytes # 0.4 (0-1.0) k/uL Eosinophils # 0.1 (0-0.7) k/uL Basophils # 0.0 (0-0.2) k/uL PT (9.0-12.0) sec INR (<1.2) APTT (22.0-30.0) sec Sodium 139 (137-145) mmol/L Potassium 3.7 (3.5-5.1) mmol/L Chloride 100 (98-107) mmol/L Carbon Dioxide 29 (22-30) mmol/L Anion Gap 10 mmol/L BUN 16 (7-17) mg/dL Creatinine 0.78 (0.52-1.04) mg/dL Est GFR (CKD-EPI)AfAm >90 (>60 ml/min/1.73 sqM) Est GFR (CKD-EPI)NonAf 79 (>60 ml/min/1.73 sqM) Glucose 118 H (74-99) mg/dL POC Glucose (mg/dL) (75-99) mg/dL POC Glu Web Programmer ID Calcium 10.2 (8.4-10.2) mg/dL Total Bilirubin 0.5 (0.2-1.3) mg/dL AST 30 (14-36) U/L ALT 24 (9-52) U/L Alkaline Phosphatase 126 (38-126) U/L Troponin I (0.000-0.034) ng/mL Total Protein 7.9 (6.3-8.2) g/dL Albumin 4.6 (3.5-5.0) g/dL Urine Color Yellow Urine Appearance Clear (Clear) Urine pH 5.0 (5.0-8.0) Ur Specific [place] 1.037 H (1.001-1.035) Urine Protein 1+ H (Negative) Urine Glucose (UA) Negative (Negative) Urine Ketones Trace H (Negative) Urine Blood Negative (Negative) Urine Nitrite Negative (Negative) Urine Bilirubin Negative (Negative) Urine Urobilinogen 3.0 (<2.0) mg/dL Ur Leukocyte Esterase Moderate H (Negative) Urine RBC 4 (0-5) /hpf Urine WBC 3 (0-5) /hpf Ur Squamous Epith Cells 1 (0-4) /hpf Urine Bacteria Rare H (None) /hpf Urine Mucus Moderate H (None) /hpf Urine Opiates Screen Not Detected (NotDetected) Ur Oxycodone Screen Not Detected (NotDetected) Urine Methadone Screen Not Detected (NotDetected) Ur Propoxyphene Screen Not Detected (NotDetected) Ur Barbiturates Screen Not Detected (NotDetected) U Tricyclic Antidepress Not Detected (NotDetected) Ur Phencyclidine Scrn Not Detected (NotDetected) Ur Amphetamines Screen Not Detected (NotDetected) U Methamphetamines Scrn Not Detected (NotDetected) U Benzodiazepines Scrn Detected H (NotDetected) Urine Cocaine Screen Not Detected (NotDetected) U Marijuana (THC) Screen Not Detected (NotDetected) 01/27/19 01/27/19 01/27/19 Range/Units 18:45 18:45 19:13 WBC (3.8-10.6) k/uL RBC (3.80-5.40) m/uL Hgb (11.4-16.0) gm/dL Hct (34.0-46.0) % MCV (80.0-100.0) fL MCH (25.0-35.0) pg MCHC (31.0-37.0) g/dL RDW (11.5-15.5) % Plt Count (150-450) k/uL Neutrophils % % Lymphocytes % % Monocytes % % Eosinophils % % Basophils % % Neutrophils # (1.3-7.7) k/uL Lymphocytes # (1.0-4.8) k/uL Monocytes # (0-1.0) k/uL Eosinophils # (0-0.7) k/uL Basophils # (0-0.2) k/uL PT 10.8 (9.0-12.0) sec INR 1.0 (<1.2) APTT 23.8 (22.0-30.0) sec Sodium (137-145) mmol/L Potassium (3.5-5.1) mmol/L Chloride (98-107) mmol/L Carbon Dioxide (22-30) mmol/L Anion Gap mmol/L BUN (7-17) mg/dL Creatinine (0.52-1.04) mg/dL Est GFR (CKD-EPI)AfAm (>60 ml/min/1.73 sqM) Est GFR (CKD-EPI)NonAf (>60 ml/min/1.73 sqM) Glucose (74-99) mg/dL POC Glucose (mg/dL) 110 H (75-99) mg/dL POC Glu Web Programmer ID Y[place]aur Maria Esther Calcium (8.4-10.2) mg/dL Total Bilirubin (0.2-1.3) mg/dL AST (14-36) U/L ALT (9-52) U/L Alkaline Phosphatase (38-126) U/L Troponin I <0.012 (0.000-0.034) ng/mL Total Protein (6.3-8.2) g/dL Albumin (3.5-5.0) g/dL Urine Color Urine Appearance (Clear) Urine pH (5.0-8.0) Ur Specific [place] (1.001-1.035) Urine Protein (Negative) Urine Glucose (UA) (Negative) Urine Ketones (Negative) Urine Blood (Negative) Urine Nitrite (Negative) Urine Bilirubin (Negative) Urine Urobilinogen (<2.0) mg/dL Ur Leukocyte Esterase (Negative) Urine RBC (0-5) /hpf Urine WBC (0-5) /hpf Ur Squamous Epith Cells (0-4) /hpf Urine Bacteria (None) /hpf Urine Mucus (None) /hpf Urine Opiates Screen (NotDetected) Ur Oxycodone Screen (NotDetected) Urine Methadone Screen (NotDetected) Ur Propoxyphene Screen (NotDetected) Ur Barbiturates Screen (NotDetected) U Tricyclic Antidepress (NotDetected) Ur Phencyclidine Scrn (NotDetected) Ur Amphetamines Screen (NotDetected) U Methamphetamines Scrn (NotDetected) U Benzodiazepines Scrn (NotDetected) Urine Cocaine Screen (NotDetected) U Marijuana (THC) Screen (NotDetected) Disposition Clinical Impression: Amnesia, Confusion Disposition: HOME SELF-CARE Condition: Good Instructions (If sedation given, give patient instructions): Altered Mental Status (ED) Is patient prescribed a controlled substance at d/c from ED?: No Referrals: Consuelo Roldan MD [Primary Care Provider] - 1-2 days Time of Disposition: 20:32
[2019-01-27 19:18] LABS: Basophils % (A) 0 %; Eosinophils # (A) 0.1 k/uL (0-0.7); Eosinophils % (A) 1 %; HCT 38.8 % (34.0-46.0); HGB 14.6 gm/dL (11.4-16.0); Lymphocytes # (A) 1.5 k/uL (1.0-4.8); Lymphocytes % (A) 17 %; MCH 33.4 pg (25.0-35.0); MCHC 37.8 g/dL (31.0-37.0); MCV 88.4 fL (80.0-100.0); Mean Platelet Volume 7.7; Monocytes # (A) 0.4 k/uL (0-1.0); Monocytes % (A) 4 %; Neutrophils # (A) 6.7 k/uL (1.3-7.7); Neutrophils % (A) 76 %; Platelet Count 265 k/uL (150-450); RBC 4.39 m/uL (3.80-5.40); RDW 13.7 % (11.5-15.5); WBC 8.8 k/uL (3.8-10.6)
[2019-01-27 19:23] LABS: Appearance,Urine Clear (Clear); Bacteria,Urine Rare /hpf; Bilirubin,Urine Negative (Negative); Blood,Urine Negative (Negative); Color,Urine Yellow; Glucose,Urine (UA) Negative (Negative); Ketones,Urine Trace (Negative); Leukocyte Esterase,Urine Moderate (Negative); Mucus,Urine Moderate /hpf; Nitrite,Urine Negative (Negative); Protein,Urine 1+ (Negative); RBC,Urine 4 /hpf (0-5); Specific Gravity,Urine 1.037 (1.001-1.035); Squamous Epithelial Cell,Urine 1 /hpf (0-4); WBC,Urine 3 /hpf (0-5)
[2019-01-27 19:25] LABS: ALT 24 U/L (9-52); AST 30 U/L (14-36); African American GFR (CKD) >90 (>60 ml/min/1.73 sqM); Albumin 4.6 g/dL (3.5-5.0); Alkaline Phosphatase 126 U/L (38-126); Anion Gap 10 mmol/L; Blood Urea Nitrogen 16 mg/dL (7-17); Calcium 10.2 mg/dL (8.4-10.2); Carbon Dioxide 29 mmol/L (22-30); Chloride 100 mmol/L (98-107); Glucose 118 mg/dL (74-99); Potassium 3.7 mmol/L (3.5-5.1); Sodium 139 mmol/L (137-145); Total Bilirubin 0.5 mg/dL (0.2-1.3); Total Protein 7.9 g/dL (6.3-8.2)
[2019-01-27 19:25] LABS: Glucose,Whole Blood 110 mg/dL (75-99)
[2019-01-27 19:26] LABS: Partial Thromboplastin Time 23.8 sec (22.0-30.0); Prothrombin Time 10.8 sec (9.0-12.0)
[2019-01-27 19:30] LABS: Amphetamine Screen,Urine Not Detected (NotDetected); Barbiturate Screen,Urine Not Detected (NotDetected); Benzodiazepines Screen,Urine Detected (NotDetected); Cocaine Screen,Urine Not Detected (NotDetected); Methadone Screen, Urine Not Detected (NotDetected); Opiate Screen,Urine Not Detected (NotDetected); Oxycodone Screen, Urine Not Detected (NotDetected); Phencyclidine Screen,Urine Not Detected (NotDetected); Tricyclic Antidepressant,Urine Not Detected (NotDetected); Urn Cannabinoid Scrn Not Detected (NotDetected)
--- NOTE | 2019-01-27 19:43 | XR ---
EXAMINATION TYPE: XR chest 2V DATE OF EXAM: 01/27/2019 COMPARISON: 01/14/2018 HISTORY: Confusion TECHNIQUE: Frontal and lateral views of the chest are obtained. FINDINGS: Heart and mediastinum are normal. Lungs are clear. Diaphragm is normal. Bony thorax is int act. IMPRESSION: No active cardiopulmonary disease. Normal heart. No change.
--- NOTE | 2019-01-27 19:58 | CT ---
EXAMINATION TYPE: CT brain wo con DATE OF EXAM: 01/27/2019 COMPARISON: 01/14/2018 HISTORY: Altered mental status. CT DLP: 1058.4 mGycm Automated exposure control for dose reduction was used. FINDINGS: Ventricles and sulci appear normal. There is no mass effect nor midline shift. There is no sign of in tracranial hemorrhage. The calvarium is intact. IMPRESSION: NEGATIVE CT SCAN OF THE BRAIN. NO CHANGE.
[2019-01-27 20:51] VITALS: BP 124/60; PULSE 78; RESP 18; TEMP 98.1
== END 2019-01-27 20:49 | disposition home or self-care (01) ==
LOC: EC 18:27
DX: F79 Unspecified intellectual disabilities (principal); R41.0 Disorientation, unspecified; I10 Essential (primary) hypertension; Z79.899 Other long term (current) drug therapy; Z88.2 Allergy status to sulfonamides
CPT/HCPCS: 36415; 70450; 71046; 80053; 80306; 81001; 84484; 85025; 85610; 85730; 93005; 99285

== ENCOUNTER → 2019-03-04 | Outpatient (CLI) | payer MEDICARE, OTHER ==
--- NOTE | 2019-03-04 14:15 | MM ---
Reason for exam: screening (asymptomatic). Last mammogram was performed 2 years and 11 months ago. History: Patient is postmenopausal. Taking estrogen for 4 years beginning at age 52. Physical Findings: A clinical breast exam by your physician is recommended on an annual basis and results should be correlated with mammographic findings. MG Screening Mammo w CAD Bilateral CC and MLO view(s) were taken. Prior study comparison: April 09, 2016, bilateral MG screening mammo w CAD. February 23, 2015, bilateral MG screening mammo w CAD. There are scattered fibroglandular densities. There are benign vascular calcifications. No suspicious abnormality. No significant changes when compared with prior studies. ASSESSMENT: Benign, BI-RAD 2 RECOMMENDATION: Routine screening mammogram of both breasts in 1 year.
== END | disposition home or self-care (01) ==
LOC: RADMAMWWP 10:17
PROVIDERS: ATTEND Family Medicine
DX: Z12.31 Encounter for screening mammogram for malignant neoplasm of breast (principal)
CPT/HCPCS: 77067

== ENCOUNTER → 2020-05-19 | Outpatient (CLI) | payer MEDICARE, OTHER ==
--- NOTE | 2020-05-19 17:39 | XR ---
EXAMINATION TYPE: XR Hip Complete RT DATE OF EXAM: 05/19/2020 COMPARISON: NONE HISTORY: Pain TECHNIQUE: 2 views submitted FINDINGS: There is no evidence of erosive change or acute fracture. Diffuse osteopenia with mild concentric dusty rowing of joint space. Hypertrophic change of the acetabulum. IMPRESSION: 1. Diffuse osteopenia with mild arthropathy. Correlate for femoral acetabular impingement.
== END | disposition home or self-care (01) ==
LOC: RADXRMAIN 11:19
PROVIDERS: ATTEND Family Medicine
DX: M25.551 Pain in right hip (principal); M85.80 Other specified disorders of bone density and structure, unspecified site
CPT/HCPCS: 73502

== ENCOUNTER → 2020-06-02 | Outpatient (CLI) | payer MEDICARE, OTHER ==
--- NOTE | 2020-06-02 11:37 | US ---
EXAMINATION TYPE: US abdomen complete DATE OF EXAM: 06/02/2020 COMPARISON: NONE CLINICAL HISTORY: 70-year-old female R10.9 RT FLANK PAIN. TECHNIQUE: Multiple sonographic images of the abdomen are obtained. FINDINGS: EXAM MEASUREMENTS: Liver Length: 13.7 cm Gallbladder: Surgically absent CBD: 0.4 cm Spleen: 10.0 cm Right Kidney: 9.6 x 3.7 x 4.5 cm Left Kidney: 9.5 x 4.3 x 4.3 cm Aircraft Painter note: Morbidly obese patient, technically difficult limited study. Pancreas: wnl as seen, tail obscured by bowel gas Liver: Increased attenuation, decreased visualization of vessels suggestive of fatty infiltrate. No focal lesion seen. Gallbladder: Surgically absent Evidence for sonographic Avila's sign: no CBD: wnl Spleen: wnl Right Kidney: hyperechoic focus superior measuring 0.9 x 0.8 x 1.0cm. There is no hydronephrosis. Left Kidney: No hydronephrosis. Upper IVC: wnl Abd Aorta: wnl, bifurcation obscured by bowel gas IMPRESSION: 1. Findings suggest mild hepatic steatosis. 2. Status post cholecystectomy. No biliary ductal dilatation. 3. 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 Six -month follow-up ultrasound recommended to reassess. A small percentage of RCC's can present on ultra sound as an echogenic lesion.
== END | disposition home or self-care (01) ==
LOC: RADUSWWP 10:01
PROVIDERS: ATTEND Family Medicine
DX: N28.89 Other specified disorders of kidney and ureter (principal); Z90.49 Acquired absence of other specified parts of digestive tract
CPT/HCPCS: 76700

== ENCOUNTER → 2021-12-05 | Outpatient (CLI) | payer MEDICARE, OTHER ==
--- NOTE | 2021-12-06 13:23 | MM ---
Reason for exam: screening (asymptomatic). Last mammogram was performed 2 years and 9 months ago. History: Patient is postmenopausal. Taking estrogen for 4 years beginning at age 52. Physical Findings: A clinical breast exam by your physician is recommended on an annual basis and results should be correlated with mammographic findings. MG Screening Mammo w CAD Bilateral CC, MLO, and XCCL view(s) were taken. Prior study comparison: March 04, 2019, bilateral MG screening mammo w CAD. April 09, 2016, bilateral MG screening mammo w CAD. There are scattered fibroglandular densities. There are benign appearing vascular calcifications bilaterally. There is stable chronic nodularity in the left breast. There is no discrete abnormality. ASSESSMENT: Benign, BI-RAD 2 RECOMMENDATION: Routine screening mammogram of both breasts in 1 year.
== END | disposition home or self-care (01) ==
LOC: RADMAMWWP 15:39
PROVIDERS: ATTEND Family Medicine
DX: Z12.31 Encounter for screening mammogram for malignant neoplasm of breast (principal); Z78.0 Asymptomatic menopausal state
CPT/HCPCS: 77067

== ENCOUNTER → 2024-01-29 | Outpatient (CLI) | payer MEDICARE, OTHER ==
--- NOTE | 2024-01-29 15:27 | BD ---
EXAMINATION TYPE: Axial Bone Density DATE OF EXAM: 01/29/2024 CLINICAL HISTORY: 73 years old Female. ICD-10 CODE: Z78.0 ASYMPTOMATIC HERMAN M85.88 DISORDER OF BONE DENSITY Height: 60.75in Weight: 159lb FRAX RISK QUESTIONS: Secondary Osteoporosis: Rheumatoid Arthritis: yes RISK FACTORS HISTORY OF: MEDICATIONS: EXAM MEASUREMENTS: Bone mineral densitometry was performed using the [employer] System. Bone mineral density as measured about the Lumbar spine is: ----- L1-L4(G/cm2): 1.283 T Score Values are as follows: ----- L1: -0.5 ----- L2: 0.2 ----- L3: 1.6 ----- L4: 1.7 ----- L1-L4: 0.9 Z Score Values are as follows: ----- L1: 1.0 ----- L2: 1.7 ----- L3: 3.0 ----- L4: 3.2 ----- L1-L4: 2.3 Bone mineral density has: Decreased -1.8% since study of: 05-27-16 Bone mineral density about the R hip (g/cm2): 0.961 Bone mineral density about the L hip (g/cm2): 0.961 T Score values are as follows: -----R Neck: -1.0 -----L Neck: -1.2 -----R Total: -0.4 -----L Total: -0.4 Z Score values are as follows: -----R Neck: 0.6 -----L Neck: 0.5 -----R Total: 1.1 -----L Total: 1.1 Bone mineral density has: Decreased -3.0% since study of: 05-27-16 FRAX%s: The graph provided illustrates a 12.4% chance for a major osteoporotic fx and a 1.9% chance f or the hips probability for fx in 10 years time. IMPRESSION: Normal (Values between +1 and -1 indicate normal bone mass). Consider repeating this study in 5 year s or sooner if there is some new clinical indication. NOTE: T-SCORE=SD OF THE YOUNG ADULT MEAN.
--- NOTE | 2024-02-02 07:50 | MM ---
Reason for Exam: Screening (asymptomatic). Last mammogram was performed 2 year(s) and 2 month(s) ago. Patient History: Menarche at age 13. First Full-Term at age 22. Left ovary removed at age 36. Hysterectomy at age 36. Postmenopausal. Currently using Estrogen, beginning at age 52 for 4 years. Risk Values: Mary 5 year model risk: 1.6%. NCI Lifetime model risk: 4.1%. Prior Study Comparison: 04/09/2016 Bilateral Screening Mammogram, [facility]. 03/04/2019 Bilateral Screening Mammogram, [facility]. 12/05/2021 Bilateral Screening Mammogram, [facility]. Tissue Density: The breasts are heterogeneously dense, which may obscure small masses. Findings: Analyzed By CAD. There is no suspicious group of microcalcifications or new suspicious mass in either breast. Overall Assessment: Benign, BI-RAD 2 Management: Screening Mammogram of both breasts in 1 year. . Patient should continue monthly self-breast exams. A clinical breast exam by your physician is recommended on an annual basis. This exam should not preclude additional follow-up of suspicious palpable abnormalities. Note on Mary scores and lifetime risk: 1. A Mary score greater than 3% is considered moderate risk. If this is the case, consider specialist referral to assess eligibility for a risk reducing agent. 2. If overall lifetime risk for the development of breast cancer is 20% or higher, the patient may qualify for future screening with alternating mammogram and breast MRI. Electronically signed and approved by: Shelton Vasquez M.D. Radiologis
== END | disposition home or self-care (01) ==
LOC: RADMAMWWP 14:18
PROVIDERS: ATTEND Family Medicine
DX: Z12.31 Encounter for screening mammogram for malignant neoplasm of breast (principal); M85.88 Other specified disorders of bone density and structure, other site; M81.8 Other osteoporosis without current pathological fracture; M06.9 Rheumatoid arthritis, unspecified
CPT/HCPCS: 77063; 77067; 77080